=== PATIENT | female | born 1960 | race Caucasian/White ===

== ENCOUNTER 2017-11-25 00:46 | Outpatient (CLI) | payer BC, SELFPAY ==
--- NOTE | 2017-11-25 16:11 | DI.MAMMO_ITS ---
SYMPTOM/DIAGNOSIS: SCREENING MAMMOGRAMS: Mammograms were interpreted according to the usual protocol including computer analysis with CAD system, tomosynthesis and C view imaging. Comparison is made with exams from 2016 and 2017. The breasts are composed of scattered fibroglandular densities, breast density, Category B. No suspicious masses or suspicious microcalcifications are seen. There has been no significant change. IMPRESSION: Category 1B, negative mammogram. Routine screening is recommended. SA ASSESSMENT OF FINDINGS: Negative. Category 1. Patient will receive a letter notifying them of these results. BI-RADS category B. There are scattered areas of fibroglandular density.
== END 2017-11-25 01:06 ==
DX: Z12.31 Encounter for screening mammogram for malignant neoplasm of breast (principal)
CPT/HCPCS: 77063; 77067

== ENCOUNTER 2018-02-22 15:39 | Outpatient (REF) | payer BC, SELFPAY ==
--- NOTE | 2018-02-22 14:45 | PAPFT_PTH ---
PATIENT: Purvi Murray LOC: [facility] U#:[id number] AGE/SX: 57/F ROOM: RE02/22/[address]: Shirley Grant MD : 1960 BED: DIS: 02/22/2018 SPEC #: [id number] RECD: 02/22/18 18:36 STATUS: VIRIDIANA REQ #: [id number] WAYLON: 02/22/18 14:[address]: Shirley Berger DEPT: [facility] Cytology RECD BY: Rosemary Ruano ENTERED: 02/22/18 18:36 SP TYPE: PAPFT OTHR DR: Shasta Macedo APRN Tissues: 1 - CX/ENDOCX FOR PAP SMEARS Procedures: PAP THIN PREP/UVM Screening Comments: [id number] (CHLAMYDIA/GC) (UNSATISFACTORY FOR EVALUATION)
[2018-02-23 14:03] LABS: Chlamydia Result Negative; GC Result Negative; Specimen Description SEE COMMENTS
== END 2018-02-22 15:59 ==
LOC: LBN 15:39
PROVIDERS: Visit Provider Internal Medicine
DX: N89.8 Other specified noninflammatory disorders of vagina (principal); Z11.3 Encounter for screening for infections with a predominantly sexual mode of transmission; Z12.4 Encounter for screening for malignant neoplasm of cervix; Z11.51 Encounter for screening for human papillomavirus (HPV)
CPT/HCPCS: 87491; 87591; 88142; 87480; 87510; 87624; 87660

== ENCOUNTER 2018-03-17 11:27 | Emergency (ER) | payer BC, SELFPAY ==
[2018-03-17 11:32] VITALS: BP 109/70; PULSE 72; RESP 18; TEMP 36.3; O2SAT 97
--- NOTE | 2018-03-17 11:51 | W.ED.GENAD ---
Discharge Plan Disposition Patient Disposition: HOME Condition: Improving Discharge Details Chief Complaint: RespSymp Clinical Impression: Acute bronchitis with bronchospasm Primary Care Provider: Shasta Macedo ED Provider: Akhil Cedeño Home Meds and New Rx's Prescriptions: New amoxicillin-pot clavulanate 875-125 mg tablet 1 tab PO BID 10 Days Qty: 20 RF: 0 benzonatate [Tessalon Perles] 100 mg capsule 100 mg PO TID PRN (Reason: cough) Qty: 14 RF: 0 Continued escitalopram oxalate 5 MG tablet 5 mg PO DAILY Qty: 90 RF: 3 Discharge Instructions Instructions: Acute Bronchitis (ED) Additional Instructions: Follow-up with Shasta in clinic if not improving as we discussed. May use albuterol inhaler 2 puffs every 4 hours as needed. If you feel you require more frequent use, please return for reevaluation Take Augmentin as prescribed. May use Tessalon as prescribed as needed for cough. Small, frequent sips of fluids to maintain hydration. Tylenol if needed for aches, pains, fever Medical Decision Making 57-year-old female presents with worsening cough and congestion over 10-14 days time associated with subjective fever and chills. Her vital signs are normal exam reveals cough with end expiratory wheeze. She is not a smoker. She is well-appearing. Certainly has bronchitis with bronchospasm and may be developing a walking pneumonia. We will treat with Augmentin, she is given an albuterol inhaler with spacer and teaching, and may use Tessalon as needed for cough suppression. She will follow-up with primary care for recheck if not improved HPI General Mode of arrival: ambulatory. Date/Time Provider Initiated Documentation: 03/17/18 11:45. Limitations to Documentation: no limitations. Information obtained by: patient. History of Present Illness 57 year old F presents to the emergency department with the chief complaint of Worsening cough and congestion over days time., described as moderate, Quality is described as aching, and is localized to the chest. Patient started experiencing this week(s) and it has been constant. No relieving factors improve symptom(s), No exacerbating factors reported . Patient notes cough and fever/chills. Related Data Home Medications Medication Instructions Recorded Confirmed escitalopram oxalate 5 mg PO DAILY #90 tab-cap 06/22/17 02/24/18 amoxicillin-pot clavulanate 1 tab PO BID 10 Days #20 tab 03/17/18 benzonatate [Tessalon Perles] 100 mg PO TID PRN #14 cap 03/17/18 Previous Rx's Medication Instructions Recorded escitalopram oxalate 5 mg PO DAILY #90 tab-cap 06/22/17 amoxicillin-pot clavulanate 1 tab PO BID 10 Days #20 tab 03/17/18 benzonatate [Tessalon Perles] 100 mg PO TID PRN #14 cap 03/17/18 Allergies Allergy/AdvReac Type Severity Reaction Status Date / Time venlafaxine HCl AdvReac Severe Ears Verified 02/24/18 14:01 [From Effexor] ringing, feeling funny General Stated Complaint: RespSymp AUBREE: 4 Review of Systems Review of Systems 6 systems reviewed and otherwise neg PFSH Medical History Gastroesophageal reflux disease Polyp of colon (07/05/07) Surgical History Diagnostic Laproscopy Family History Mother Diabetes Essential hypertension Heart disease Hyperlipidemia Stroke Father Neoplasm Sister No problems noted. Sister No problems noted. Sister No problems noted. Sister No problems noted. Sister No problems noted. Daughter Depression Daughter No problems noted. Social History household members: other details: 2 current occupational status: employed current occupation: [employer] pets and animals: Yes pets and animals: dog(s) frequency: 3-4 times per week duration: 15-30 minutes/day Smoking/Tobacco Use Status: Never alcohol intake: current alcohol intake frequency: a few times a week substance use type: does not use special mandy needs: No History History 3 Para Hx # Term Pregnancies 2 Multiple births Hx # Pregnancies Ectopic pregnancies AB induced Hx Number of Living Children AB spontaneous Exam Narrative Exam Narrative: GEN: awake, alert, oriented 3. Pleasant, well groomed, interactive. HEAD: Normocephalic, atraumatic ENT: Mucous membranes moist, oropharynx unremarkable, External ear exam unremarkable, TMs clear bilaterally EYES: PERRL, EOMI NECK: Full ROM, no COLLEEN, no menigismus CHEST/RESP: Nontender, clear to auscultation bilateral, no rhonchi/rales. Discrete end expiratory wheeze with coughing CARDIOVASCULAR: RRR, no murmur, rub jenn. 2+ Rad pulse bilateral ABDOMEN: Soft, nontender, no mass. +Bowel sounds EXT: Full ROM, no edema, no rash Neuro: Grossly normal neurologic exam, conversant, interactive. Psych: Speech fluent, thoughts congruent, affect normal Course Vital Signs Temperature 36.3 C L 03/17/18 11:32 Pulse 72 03/17/18 11:32 Respiratory Rate 18 03/17/18 11:32 Blood Pressure 109/70 03/17/18 11:32 Pulse Oximetry 97 03/17/18 11:32 Temperature 36.3 C L 03/17/18 11:32 Temperature Source Temporal Artery Scan 03/17/18 11:32 Pulse 72 03/17/18 11:32 Respiratory Rate 18 03/17/18 11:32 Respiratory Effort Non-Labored 03/17/18 11:49 Blood Pressure 109/70 03/17/18 11:32 Pulse Oximetry 97 03/17/18 11:32 Oxygen Delivery Method Room Air 03/17/18 11:32 Oxygen Flow Rate 0 03/17/18 11:32
--- NOTE | 2018-03-17 11:54 | ED.GENADUL_ITS ---
Discharge Plan Disposition Patient Disposition: HOME Condition: Improving Discharge Details Chief Complaint: RespSymp Clinical Impression: Acute bronchitis with bronchospasm Primary Care Provider: Shasta Macedo ED Provider: Akhil Cedeño Home Meds and New Rx's Prescriptions: New amoxicillin-pot clavulanate 875-125 mg tablet 1 tab PO BID 10 Days Qty: 20 RF: 0 benzonatate [Tessalon Perles] 100 mg capsule 100 mg PO TID PRN (Reason: cough) Qty: 14 RF: 0 Continued escitalopram oxalate 5 MG tablet 5 mg PO DAILY Qty: 90 RF: 3 Discharge Instructions Instructions: Acute Bronchitis (ED) Additional Instructions: Follow-up with Shasta in clinic if not improving as we discussed. May use albuterol inhaler 2 puffs every 4 hours as needed. If you feel you require more frequent use, please return for reevaluation Take Augmentin as prescribed. May use Tessalon as prescribed as needed for cough. Small, frequent sips of fluids to maintain hydration. Tylenol if needed for aches, pains, fever Medical Decision Making 57-year-old female presents with worsening cough and congestion over 10-14 days time associated with subjective fever and chills. Her vital signs are normal exam reveals cough with end expiratory wheeze. She is not a smoker. She is well-appearing. Certainly has bronchitis with bronchospasm and may be developing a walking pneumonia. We will treat with Augmentin, she is given an albuterol inhaler with spacer and teaching, and may use Tessalon as needed for cough suppression. She will follow-up with primary care for recheck if not improved HPI General Mode of arrival: ambulatory . Date/Time Provider Initiated Documentation: 03/17/18 11:45 . Limitations to Documentation: no limitations . Information obtained by: patient . History of Present Illness 57 year old F presents to the emergency department with the chief complaint of Worsening cough and congestion over days time., described as moderate, Quality is described as aching, and is localized to the chest. Patient started experiencing this week(s) and it has been constant. No relieving factors improve symptom(s), No exacerbating factors reported . Patient notes cough and fever/chills. Related Data Home Medications Medication Instructions Recorded Confirmed escitalopram oxalate 5 mg PO DAILY #90 tab-cap 06/22/17 02/24/18 amoxicillin-pot clavulanate 1 tab PO BID 10 Days #20 tab 03/17/18 benzonatate [Tessalon Perles] 100 mg PO TID PRN #14 cap 03/17/18 Previous Rx's Medication Instructions Recorded escitalopram oxalate 5 mg PO DAILY #90 tab-cap 06/22/17 amoxicillin-pot clavulanate 1 tab PO BID 10 Days #20 tab 03/17/18 benzonatate [Tessalon Perles] 100 mg PO TID PRN #14 cap 03/17/18 Allergies Allergy/AdvReac Type Severity Reaction Status Date / Time venlafaxine HCl AdvReac Severe Ears Verified 02/24/18 14:01 [From Effexor] ringing, feeling funny General Stated Complaint: RespSymp AUBREE: 4 Review of Systems Review of Systems 6 systems reviewed and otherwise neg PFSH Medical History Gastroesophageal reflux disease Polyp of colon (07/05/07) Surgical History Diagnostic Laproscopy Family History Mother Diabetes Essential hypertension Heart disease Hyperlipidemia Stroke Father Neoplasm Sister No problems noted. Sister No problems noted. Sister No problems noted. Sister No problems noted. Sister No problems noted. Daughter Depression Daughter No problems noted. Social History household members: other details: 2 current occupational status: employed current occupation: [employer] pets and animals: Yes pets and animals: dog(s) frequency: 3-4 times per week duration: 15-30 minutes/day Smoking/Tobacco Use Status: Never alcohol intake: current alcohol intake frequency: a few times a week substance use type: does not use special mandy needs: No History History 3 Para Hx # Term Pregnancies 2 Multiple births Hx # Pregnancies Ectopic pregnancies AB induced Hx Number of Living Children AB spontaneous Exam Narrative Exam Narrative: GEN: awake, alert, oriented 3. Pleasant, well groomed, interactive. HEAD: Normocephalic, atraumatic ENT: Mucous membranes moist, oropharynx unremarkable, External ear exam unremarkable, TMs clear bilaterally EYES: PERRL, EOMI NECK: Full ROM, no COLLEEN, no menigismus CHEST/RESP: Nontender, clear to auscultation bilateral, no rhonchi/rales. Discrete end expiratory wheeze with coughing CARDIOVASCULAR: RRR, no murmur, rub jenn. 2+ Rad pulse bilateral ABDOMEN: Soft, nontender, no mass. +Bowel sounds EXT: Full ROM, no edema, no rash Neuro: Grossly normal neurologic exam, conversant, interactive. Psych: Speech fluent, thoughts congruent, affect normal Course Vital Signs Temperature 36.3 C L 03/17/18 11:32 Pulse 72 03/17/18 11:32 Respiratory Rate 18 03/17/18 11:32 Blood Pressure 109/70 03/17/18 11:32 Pulse Oximetry 97 03/17/18 11:32 Temperature 36.3 C L 03/17/18 11:32 Temperature Source Temporal Artery Scan 03/17/18 11:32 Pulse 72 03/17/18 11:32 Respiratory Rate 18 03/17/18 11:32 Respiratory Effort Non-Labored 03/17/18 11:49 Blood Pressure 109/70 03/17/18 11:32 Pulse Oximetry 97 03/17/18 11:32 Oxygen Delivery Method Room Air 03/17/18 11:32 Oxygen Flow Rate 0 03/17/18 11:32
[2018-03-17] MEDS: Amoxicillin 875/Clav. 125 TAB PO (11:56)
[2018-03-17] MEDS: Albuterol HFA 8 GM 60 PUFF INH IH (11:57)
== END 2018-03-17 12:07 | disposition home or self-care (01) ==
PROVIDERS: Emergency Provider Emergency Medicine
DX: J20.9 Acute bronchitis, unspecified (principal)
CPT/HCPCS: 99283

== ENCOUNTER 2018-06-07 09:47 | Emergency (ER) | payer BC, SELFPAY ==
[2018-06-07 10:11] VITALS: BP 95/66; PULSE 96; RESP 16; TEMP 36.6; O2SAT 99
--- NOTE | 2018-06-07 10:51 | ED.GENADUL_ITS ---
Discharge Plan Disposition Patient Disposition: HOME Condition: Good Discharge Details Chief Complaint: Sorethroat Clinical Impression: Acute streptococcal tonsillitis Primary Care Provider: Shasta Macedo ED Provider: Gabino Mason Home Meds and New Rx's Prescriptions: New clindamycin HCl 300 mg capsule 300 mg PO Q6H Qty: 40 RF: 0 methylprednisolone [Medrol (Erick)] 4 mg tablets,dose pack See Rx Instructions .ROUTE .COMPLEX Qty: 21 RF: 0 Discharge Instructions Instructions: Tonsillitis (ED) Additional Instructions: Please start the Medrol Dosepak tomorrow morning. Start the oral antibiotics this evening. Be sure to drink plenty of fluids to stay hydrated. Do salt water gargles to help with throat discomfort. Use Cepacol lozenges to help with throat pain. Use ibuprofen or acetaminophen for fever and pain. Contact ENT tomorrow ([phone]) for follow-up appointment in [place] on Thursday. Return to emergency department for inability to swallow, difficulty breathing, lethargy, neurological changes. Referrals: Rick Bui DO [OSTEOPATHIC DOCTOR] - Discharge Data Discharge Date/Time-TO BE ENTERED AT DEPARTURE: 06/07/18 13:40 Medical Decision Making Patient's rapid strep is positive from triage. She has erythema and exudate bilaterally. She has posterior oropharyngeal swelling on the left. Uvula is midline. Does not look like typical peritonsillar abscess. Consider retropharyngeal abscess. IV established and laboratory studies obtained. Fluids and Toradol given. Clindamycin IV given. CT scan of the neck obtained. Patient remains afebrile. White count is elevated. Labs otherwise okay. CT scan with left sided tonsillar hypertrophy and swelling. Possible very small fluid collection around 5 mm. This would be too small to attempt any type of drainage from. Case is discussed with ENT, Dr. Bui. Recommends a dose of IV Solu-Medrol here. Continue clindamycin and Medrol Dosepak at home. Patient to use Tylenol or Motrin for pain and fever. Salt water gargles and Cepacol lozenges as well for throat discomfort. Follow-up with ENT on Thursday. Return to ED if difficulty breathing, inability to swallow, high fevers, worsening pain. Lab Data Lab results reviewed: Yes I reviewed the patient's lab results. HPI General Mode of arrival: ambulatory . Date/Time Provider Initiated Documentation: 06/07/18 10:39 . Limitations to Documentation: no limitations . Information obtained by: patient and RN notes reviewed . HPI Narrative: Patient presents with 24 hours of worsening throat pain. Pain is worse on the left than the right. She has difficulty swallowing but is able to do so. She does not have difficulty breathing. She has had no fever that she is aware of. She has no other URI type symptoms. She has had no nausea vomiting. She has no headache or neurologic symptoms. Related Data Home Medications Medication Instructions Recorded Confirmed clindamycin HCl 300 mg PO Q6H #40 cap 06/07/18 methylprednisolone [Medrol (Erick)] See Rx Instructions .ROUTE 06/07/18 .COMPLEX #21 dose pk Previous Rx's Medication Instructions Recorded clindamycin HCl 300 mg PO Q6H #40 cap 06/07/18 methylprednisolone [Medrol (Erick)] See Rx Instructions .ROUTE 06/07/18 .COMPLEX #21 dose pk Allergies Allergy/AdvReac Type Severity Reaction Status Date / Time venlafaxine HCl AdvReac Severe Ears Verified 06/07/18 10:13 [From Effexor] ringing, feeling funny General Stated Complaint: Sorethroat AUBREE: 4 Review of Systems Constitutional Denies chills, Denies fever(s), Denies headache(s) and Denies weakness Eyes Denies eye discharge and Denies eye pain ENT Denies dizziness, Denies facial pain, Denies headache(s), Denies neck pain, Reports odynophagia, Reports sore throat, Denies throat swelling and Denies tongue swelling Cardiovascular Denies chest pain, Denies diaphoresis, Denies syncope and Denies dyspnea Respiratory Denies cough and Denies dyspnea Gastrointestinal Denies abdominal pain, Denies nausea, Reports odynophagia and Denies vomiting Musculoskeletal Denies back pain, Denies myalgias, Denies arthralgias, Denies neck pain and Denies numbness Integumentary/Breasts Denies rash Neurologic Denies dizziness, Denies syncope, Denies headache(s), Denies focal weakness, Denies numbness and Denies weakness Allergic/Immunologic Denies throat swelling and Denies tongue swelling [facility] Medical History Tubular adenoma (Chronic) Sebaceous papule (Resolved 07/02/16) Rosacea (Chronic 11/28/14) Right upper extremity numbness (Resolved 07/15/17) Pre-menstrual syndrome (Chronic) Colon polyp (Chronic) Insomnia (Chronic 12/13/15) Urinary, incontinence, stress female (Chronic 03/18/13) BMI 30.0-30.9,adult (Chronic 05/05/16) Anxiety (Chronic) Actinic keratoses (Chronic 07/02/16) Gastroesophageal reflux disease (Chronic) Surgical History Diagnostic Laproscopy (Inactive) Social History Smoking/Tobacco Use Status: Never Alcohol Intake: current Alcohol Intake frequency: a few times a week Drug use: Never Substance use type: does not use Household members: other Details: 2 Pets and animals: Yes Pets and animals: dog(s) Duration: 15-30 minutes/day Frequency: 3-4 times per week Special mandy needs: No Do you feel safe in your relationship?: Yes History History 3 Para Hx # Term Pregnancies 2 Multiple births Hx # Pregnancies Ectopic pregnancies AB induced Hx Number of Living Children AB spontaneous Exam Const General: cooperative, uncomfortable and no acute distress Orientation: alert and oriented x3 HENMT Head: normocephalic Ears: external ears normal and TM's normal bilaterally General nose exam: no nasal discharge Mouth: oral mucosae normal, tongue normal and malodorous breath Throat: uvula midline, abnormal tonsil on the left hypertrophy and bilaterally erythema and exudates, posterior oropharynx abnormal edema (left) and no uvular edema Eyes Conjunctivae: conjunctivae normal Neck Neck: trachea midline, supple and lymphadenopathy Resp Effort & Inspection: normal respiratory effort Auscultation: clear to auscultation bilaterally Cardio Rate: regular rate Rhythm: regular rhythm Heart Sounds: S1 normal and S2 normal Skin General skin exam: no erythema Rashes: no rashes Neuro General: alert, oriented x3, tone normal, no meningeal signs, no focal motor deficits and CN's II-XI intact bilaterally Course Vital Signs Temperature 97.9 F 06/07/18 10:11 Pulse 96 H 06/07/18 10:11 Respiratory Rate 16 06/07/18 10:11 Blood Pressure 95/66 L 06/07/18 10:11 Pulse Oximetry 99 06/07/18 10:11 Temperature 97.9 F 06/07/18 10:11 Temperature Source Skin 06/07/18 10:11 Pulse 96 H 06/07/18 10:11 Respiratory Rate 16 06/07/18 10:11 Respiratory Effort Non-Labored 06/07/18 10:11 Blood Pressure 95/66 L 06/07/18 10:11 Blood Pressure Position Sitting 06/07/18 10:11 Pulse Oximetry 99 06/07/18 10:11 Oxygen Delivery Method Room Air 06/07/18 10:11 Oxygen Flow Rate 0 06/07/18 10:11 Pain Level 8 06/07/18 10:11 Lab/Test Results Lab/Test Results: POC Strep Test-ONEAL(Rapid) Start: 06/07/18 10:14 Freq: .Rapid Strep Test Status: Active Protocol: Document 06/07/18 10:15 MMQ (Rec: 06/07/18 10:15 MMQ [id number]) Strep test-ONEAL(Rapid)-POC POC-Strep test-ONEAL (Rapid) Positive POC-Strep test-ONEAL (Rapid) Positive
--- NOTE | 2018-06-07 10:54 | DI.CT_ITS ---
SYMPTOMS/DIAGNOSIS: POSITIVE STREP, POSTERIOR ABSCESS SUSPECTED BY EXAM CT SCAN OF THE NECK: CT scan of the neck was performed following the uneventful administration of intravenous contrast material. There is asymmetric enlargement of the palatine tonsils. The left palatine tonsil is moderately enlarged. The right palatine tonsil is mildly enlarged. There does appear to be a small 5 mm fluid collection within the palatine tonsil deep which may represent a tiny abscess. The remainder of the oropharynx, nasopharynx, hypopharynx and larynx are unremarkable. The retropharyngeal space has a normal appearance. The parotid and submandibular glands are unremarkable. The thyroid gland is grossly unremarkable. The lung apices are free of infiltrates. Mild degenerative changes are seen in the spine particularly at C 5 - 6 and C 6 - 7. The visualized paranasal sinuses are clear. The mastoid air cells appear well pneumatized. IMPRESSION: 1. Asymmetric enlargement of the palatine tonsils left greater than right consistent with tonsillitis. Tiny possible fluid collection in the left palatine tonsil measuring approximately 5 mm in maximum diameter. This may represent a tiny abscess. The findings were discussed with Dr. Mason of the emergency department on the date of the examination.
[2018-06-07] MEDS: Normal Saline 1,000 ML 1000 ML IV (11:05)
[2018-06-07] MEDS: Ketorolac 30 MG/ML VIAL IVP (11:10)
[2018-06-07] MEDS: CLINDAMYCIN 900 MG/50 ML BAG 100 MG IVPB (11:15)
[2018-06-07 11:22] LABS: Abs Immature Grans 0.03 k/cumm (0.0-0.09); Absolute Eosinophil Count 0.04 k/cumm (0.0-0.7); Absolute Lymphocyte Count 1.24 k/cumm (1.2-3.4); Absolute Monocyte Count 0.94 k/cumm (0.11-0.7); Basophils % 0.1; Eosinophils % 0.3; HCT 41.2 % (36.0-46.0); HGB 13.9 g/dL (12.0-15.5); Immature Grans % 0.2; Lymphocytes % 9.2; Mean Corp. HGB Concentration 33.7 g/dL (32.0-36.0); Mean Corpuscular Hemoglobin 31.3 pg (27.0-33.0); Mean Corpuscular Volume 92.8 fL (80-95); Mean Platelet Volume 10.5 fL (8.0-11.0); Neutrophils % 83.2; Platelet Count 229 x1000/uL (130-400); RBC 4.44 m/cumm (4.00-5.20); RBC Distribution Width 13.8 % (11.7-14.6); White Blood Cell Count 13.45 k/cumm (4.4-10.8)
[2018-06-07 11:23] LABS: Absolute Basophil Count 0.01 k/cumm (0.0-0.2); Absolute Neutrophil Count 11.19 k/cumm (1.2-6.7)
[2018-06-07 11:25] LABS: Anion Gap 12.3 mmol/L (3-11); BUN 10 mg/dL (7-18); CO2 24.7 mmol/L (21.0-32.0); CREATININE 0.83 mg/dL (0.55-1.02); Calcium 9.1 mg/dL (8.5-10.1); Chloride 101 mmol/L (98-107); Glucose 101 mg/dL (70-100); Potassium 3.5 mmol/L (3.5-5.1); Sodium 138 mmol/L (136-145)
[2018-06-07] MEDS: Omnipaque 350 MG/ML 100 ML BTL IV (11:59)
[2018-06-07] MEDS: methylPREDNISolone SUCC 125 MG VIAL IVP (13:25)
[2018-06-07 13:55] VITALS: BP 99/66; PULSE 81; RESP 16; TEMP 36.6; O2SAT 100
--- NOTE | 2018-06-08 14:57 | NUR.NOTE ---
Nursing Note: Patient called stating that she needs a referral to ENT in [place], [place]. I faxed the 06/07/18 ED visit information to the office and called them to be sure that they knew it was there for the referral. Do Roth.
== END 2018-06-07 13:40 | disposition home or self-care (01) ==
PROVIDERS: Emergency Provider Emergency Medicine
DX: J02.0 Streptococcal pharyngitis (principal)
CPT/HCPCS: 36415; 70491; 80048; 87880; 96361; 96365; 96375; 99285; 85025; 99284; J1885; J2930; J3490

== ENCOUNTER 2018-08-04 02:17 | Outpatient (CLI) | payer BC, SELFPAY ==
[2018-08-04 08:19] LABS: Cholesterol 257 mg/dL (50-200); HDL Cholesterol 94 mg/dL (40-60); LDL CHOLESTEROL 142 mg/dL (<100); Triglyceride 66 mg/dL (30-150)
== END 2018-08-04 02:37 ==
DX: E78.5 Hyperlipidemia, unspecified (principal)
CPT/HCPCS: 36415; 80061; 83721

== ENCOUNTER 2018-12-20 13:42 | Outpatient (REF) | payer BC, SELFPAY ==
--- NOTE | 2018-12-20 09:00 | PAPFT_PTH ---
PATIENT: Purvi Murray LOC: [facility] U#:[id number] AGE/SX: 58/F ROOM: RE12/20/[address]: Shasta Macedo APRN : 1960 BED: DIS: 12/20/2018 SPEC #: [id number] RECD: 12/20/18 18:18 STATUS: VIRIDIANA REQ #: [id number] WAYLON: 12/20/18 09:[address]: Shasta Macedo DEPT: [facility] Cytology RECD BY: Rosemary Ruano Tissues: 1 - CX/ENDOCX FOR PAP SMEARS Procedures: PAP THIN PREP/UVM Screening HPV DNA PROBE Comments: [id number]
== END 2018-12-20 14:02 ==
LOC: LBN 13:42
DX: Z12.4 Encounter for screening for malignant neoplasm of cervix (principal); Z11.51 Encounter for screening for human papillomavirus (HPV)
CPT/HCPCS: 88142; 87624

== ENCOUNTER 2019-01-19 01:10 | Outpatient (CLI) | payer BC, SELFPAY ==
--- NOTE | 2019-01-19 07:18 | DI.MAMMO_ITS ---
EXAM: MG MAMMO SCREENING CLINICAL HISTORY: screening,Z12.39 TECHNIQUE: Bilateral full field digital CC and MLO mammographic images were obtained with 3D tomosyn thesis and utilizing computer aided detection (CAD). COMPARISON: Available for comparison. FINDINGS: Masses/Architectural Distortion: None seen. Microcalcifications: No suspicious pleomorphic-type are seen. Skin Thickening/Nipple Retraction: None. There is patient motion on both the right craniocaudad view and the right mediolateral oblique view. These view should be repeated. IMPRESSION: 1. No significant interval change with no specific features of malignancy noted. 2. Repeat right craniocaudad and mediolateral oblique views due to patient motion artifact. BI-RADS Cat 0 - Assessment Incomplete: Need additional imaging evaluation Breast Density - Category C - Heterogeneously dense The mammogram demonstrates the patient's breast tissue is dense. Dense breast tissue is very common a nd is not abnormal but dense breast tissue can make it harder to find cancer on a mammogram. Also, de nse breast tissue may increase their breast cancer risk. This [facility] was provided to the patient to raise their awareness. Use this report when you speak wi th the patient about their risks for breast cancer, which includes their family history. At that time , you may recommend for more screening tests (Ultrasound or MRI) as they might be useful based on the ir risk. A negative radiographic report should not delay biopsy if a dominant or clinically suspicious mass is present. Up to ten percent of cancers are not identified on mammography. A negative report may reinforce clinical impression. Adenosis and dense breasts may obscure an underlying neoplasm. False positive reports average 6 to 10%.
== END 2019-01-19 01:30 ==
DX: Z12.31 Encounter for screening mammogram for malignant neoplasm of breast (principal); R92.8 Other abnormal and inconclusive findings on diagnostic imaging of breast
CPT/HCPCS: 77063; 77067

== ENCOUNTER 2019-01-20 08:09 | Outpatient (CLI) | payer BC, SELFPAY ==
[2019-01-20 10:12] LABS: Abs Immature Grans 0.01 k/cumm (0.0-0.09); Absolute Basophil Count 0.04 k/cumm (0.0-0.2); Absolute Eosinophil Count 0.05 k/cumm (0.0-0.7); Absolute Monocyte Count 0.52 k/cumm (0.11-0.7); Absolute Neutrophil Count 3.15 k/cumm (1.2-6.7); Basophils % 0.7; Eosinophils % 0.9; HCT 43.8 % (36.0-46.0); HGB 14.4 g/dL (12.0-15.5); Immature Grans % 0.2; Lymphocytes % 31.1; Mean Corp. HGB Concentration 32.9 g/dL (32.0-36.0); Mean Corpuscular Hemoglobin 31.3 pg (27.0-33.0); Mean Corpuscular Volume 95.2 fL (80-95); Mean Platelet Volume 10.7 fL (8.0-11.0); Monocytes % 9.5; Neutrophils % 57.6; Platelet Count 282 x1000/uL (130-400); RBC Distribution Width 12.5 % (11.7-14.6); White Blood Cell Count 5.47 k/cumm (4.4-10.8)
[2019-01-20 10:31] LABS: ALT 13 U/L (14-59); AST 18 U/L (15-37); Albumin 4.1 g/dL (3.4-5.0); Alkaline Phosphatase 50 U/L (46-116); Anion Gap 9.1 mmol/L (3-11); BUN 14 mg/dL (7-18); Bilirubin, Total 0.6 mg/dL (0.2-1.0); CO2 29.9 mmol/L (21.0-32.0); CREATININE 0.78 mg/dL (0.55-1.02); Calcium 9.3 mg/dL (8.5-10.1); Calculated LDL 122 mg/dL; Chloride 102 mmol/L (98-107); Cholesterol 238 mg/dL (50-200); Glucose 92 mg/dL (70-100); HDL Cholesterol 106 mg/dL (40-60); Potassium 4.3 mmol/L (3.5-5.1); Sodium 141 mmol/L (136-145); Total Protein 7.3 g/dL (6.4-8.2); Triglyceride 51 mg/dL (30-150)
== END 2019-01-20 08:29 ==
DX: E78.5 Hyperlipidemia, unspecified (principal); F32.9 Major depressive disorder, single episode, unspecified; F41.9 Anxiety disorder, unspecified; G47.00 Insomnia, unspecified; I10 Essential (primary) hypertension; N94.3 Premenstrual tension syndrome; R10.11 Right upper quadrant pain; K21.9 Gastro-esophageal reflux disease without esophagitis; Z68.30 Body mass index [BMI] 30.0-30.9, adult
CPT/HCPCS: 36415; 80053; 80061; 85025

== ENCOUNTER 2019-09-29 01:21 | Outpatient (CLI) | payer BC, SELFPAY ==
[2019-09-29 09:38] LABS: ALT 63 U/L (14-59); AST 33 U/L (15-37); Alkaline Phosphatase 48 U/L (46-116); Anion Gap 10.3 mmol/L (3-11); BUN 28 mg/dL (7-18); Bilirubin, Total 0.6 mg/dL (0.2-1.0); CO2 26.7 mmol/L (21.0-32.0); Calcium 9.1 mg/dL (8.5-10.1); Calculated LDL 140 mg/dL (<100); Chloride 103 mmol/L (98-107); Cholesterol 258 mg/dL (<200); GGT 30 U/L (5-55); Glucose 109 mg/dL (74-106); HDL Cholesterol 108 mg/dL (40-60); Potassium 4.2 mmol/L (3.5-5.1); Sodium 140 mmol/L (136-145); Total Protein 6.9 g/dL (6.4-8.2); Triglyceride 51 mg/dL (<150)
[2019-09-29 09:51] LABS: Amylase 87 U/L (25-115); Lipase 431 U/L (73-393)
== END 2019-09-29 01:41 ==
DX: R10.811 Right upper quadrant abdominal tenderness (principal); E78.5 Hyperlipidemia, unspecified; F32.9 Major depressive disorder, single episode, unspecified; F41.9 Anxiety disorder, unspecified; G47.00 Insomnia, unspecified; I10 Essential (primary) hypertension; N94.3 Premenstrual tension syndrome; Z00.00 Encounter for general adult medical examination without abnormal findings
CPT/HCPCS: 36415; 80053; 80061; 83690; 82150; 82977

== ENCOUNTER 2019-10-10 01:37 | Outpatient (CLI) | payer BC, SELFPAY ==
--- NOTE | 2019-10-10 08:45 | DI.US_ITS ---
EXAM: US ABDOMEN CLINICAL HISTORY: Worsening RUQ tenderness, [id number] TECHNIQUE: Ultrasound abdomen performed using standard protocol. COMPARISON: US ABDOMEN ULTRASOUND from 04/10/2009 CT PELVIC/LOWER ABD WITHOUT CONT from 11/04/2016 FINDINGS: ABDOMINAL AORTA AND IVC: Visualized portions normal caliber. PANCREAS: Normal where visualized. LIVER: Diffuse increased echogenicity consistent with fatty infiltration. 13.7 cm in length. No hep atic mass sonographically. Hepatopedal flow in the Portal Vein. GALLBLADDER: No evidence of cholelithiasis. No evidence of wall thickening. No pericholecystic fluid identified. BILIARY SYSTEM: Common bile duct measures 2.8 mm. No intrahepatic biliary ductal dilation. JARA'S SIGN: Negative. KIDNEYS: Kidneys are symmetric in size. No evidence of renal calculi. No evidence of hydronephrosis. No renal mass or cyst identified. SPLEEN: Not enlarged. 8.3 cm in length. ASCITES: None seen. IMPRESSION: Fatty infiltration of the liver. DATA REPOSITORY:
== END 2019-10-10 01:57 ==
DX: R10.811 Right upper quadrant abdominal tenderness (principal)
CPT/HCPCS: 76700

== ENCOUNTER 2020-03-19 17:31 | Emergency (ER) | payer BC, SELFPAY ==
[2020-03-19] VITALS (20 sets, daily range): BP systolic 118–135; BP diastolic 75–87; PULSE 63–78; RESP 12–22; TEMP 36.3; O2SAT 97–100
--- NOTE | 2020-03-19 17:30 | RT.EKG_ITS ---
APPROVED REPORT Exam: Resting ECG Patient Location: E HR:81 bpm ECG Measurements Heart Rate 81 AXIS AR 150 P 74 QRSd 84 QRS 72 QT 360 T 62 QTc 418 Conclusion Sinus rhythm...normal P axis, V-rate 60- 99
--- NOTE | 2020-03-19 17:30 | DI.RAD_ITS ---
EXAM: XR CHEST 2V PA LATERAL CLINICAL HISTORY: chest tightness TECHNIQUE: 2D digital imaging was performed. COMPARISON: No exams were available for comparison FINDINGS: MEDIASTINUM: Normal. HEART: Normal. PULMONARY VASCULATURE: Normal. LUNGS: Clear. PLEURAL SPACE: No pleural effusion or pneumothorax. BONE:Mild degenerative changes in the spine. IMPRESSION: No acute pulmonary findings. DATA REPOSITORY: RADIATION DOSE DELIVERED:
--- NOTE | 2020-03-19 17:42 | W.ED.GENAD ---
Discharge Plan Disposition Patient Disposition: HOME Condition: Improving Discharge Details Clinical Impression: Vertigo Primary Care Provider: Shasta Macedo ED Provider: Selene Newsome Home Meds and New Rx's Prescriptions: New meclizine 25 mg tablet 25 mg PO BID PRN (Reason: dizziness or vertigo) Qty: 20 RF: 0 Continued citalopram 10 mg tablet 10 mg PO DAILY Qty: 30 RF: 11 Discharge Instructions Instructions: Vertigo (ED), Benign Paroxysmal Positional Vertigo (ED) Additional Instructions: Encourage water intake. You can preform the maneuvers completed here today. Attached is information on how to do this. Please follow up with physical therapy to help with vertigo symptoms. If you develop headache, fevers/chills, inability to stay hydrated or other new/worsening symptoms please seek care urgently once again. Please follow up with primary care in 1-2 weeks for reevaluation. Stand Alone Forms: Physical Therapy Referral Referrals: Shasta Macedo, [facility] [facility] [Primary Care Provider] - Medical Decision Making Patient is a pleasant 59-year-old female presenting today with chief complaint of vertigo. She reports have been intermittent over the past week. The become maximal when she is laying supine. States that symptoms seem to improve when she is more upright and active. She denies any headache. No visual change. Denies any nausea vomiting. Denies any difficulties with ambulation. Has not noted any focal weakness. The patient is been having some chest tightness with stated this is more when she is at rest than with activity. She is wondering if this may be associate with anxiety around her vertigo. She has had one episode like this historically in 2016. On exam, patient uncomfortable appearing. Minimal movements do cause her to become very dizzy. She is describing this as the room spinning. When this occurs, she holds very still and tightens her eyes. She has no notable neurological deficits. Normal cardiac exam. No lower extremity edema, no calf tenderness. Hints exam shows no nystagmus. Test considered to is normal. Head impulse testing does show dialyze consistent with peripheral lesion. Her exam is most consistent with benign vertigo. Her chest tightness is not found consistent with ACS. It is not when she is exerting herself but rather when she is lying down. This may be associate with anxiety. At this to have been going on for approximately 1 week now, plan to rule out ACS with troponin and ECG. Her physical exam and history are not consistent with pulmonary embolism. EKG was obtained and reviewed by Dr. Vines. Patient is in a normal sinus rhythm with a rate of 81, no acute ischemic changes noted. FINDINGS: Lungs: Clear lungs. Pleural space: No pneumothorax. No sizable pleural effusion. Heart/Mediastinum: No cardiomegaly. Bones/joints: Unremarkable. IMPRESSION: Clear lungs. Labs reviewed. Normal CBC. Creatinine slightly elevated 0.04. Patient is receiving hydration. Troponin is less than 0.05. Given the length of her symptoms, I do not feel that this needs to be repeated particularly as her symptoms are not overly concerning for ACS, I find this much less likel Steve maneuver was performed twice. Symptoms were maximal on the right side. She did have some horizontal nystagmus with this. She is now able to lay flat and tolerate this. The seem to be her largest complaint as she was having the sleeping secondary to symptoms being so maximal when laying supine. However, when she sits up quickly she does continue to have some vertigo although this is very short-lived. Patient was given dose of meclizine. She reports being 100% better. He would prefer to be discharged home at this time. We did discuss other maneuvers that may be completed to try and reduce seasonal residual vertigo. However, her and she are on a schedule tonight she would like to build to go home. We will refer her to therapy for outpatient vertigo regimen. Will prescribe meclizine as this did seem to work well for her. Strict return precautions were given. I encouraged that she follow-up with primary care in 1 week. All of her questions and concerns were addressed and she is agreement with plan. HPI General Mode of arrival: ambulatory. Date/Time Provider Initiated Documentation: 03/19/20 17:42. Limitations to Documentation: no limitations. Information obtained by: patient, RN notes reviewed and old records reviewed. History of Present Illness 59 year old F presents to the emergency department with the chief complaint of Dizziness, described as severe and similar to prior episodes (Similar episode in 2016), and is localized to the chest (Is also endorsing some mild tightness in her chest when at rest). Patient reports no radiation. Patient started experiencing this day(s) and it has been intermittent. Immobilization improves symptom(s), Movement worsens symptoms . Patient notes chest pain; denies cough, diaphoresis, fever/chills, headaches, loss of appetite, malaise, nausea/vomiting, rash, shortness of breath, syncope and weakness. Patient did receive the following treatments prior to arrival, none Related Data Home Medications Medication Instructions Recorded Confirmed citalopram 10 mg tablet 10 mg PO DAILY #30 tab 11/11/19 03/19/20 meclizine 25 mg PO BID PRN #20 tab 03/19/20 Previous Rx's Medication Instructions Recorded citalopram 10 mg tablet 10 mg PO DAILY #30 tab 11/11/19 meclizine 25 mg PO BID PRN #20 tab 03/19/20 Allergies Allergy/AdvReac Type Severity Reaction Status Date / Time venlafaxine HCl AdvReac Severe Ears Verified 03/19/20 17:41 [From Effexor] ringing, feeling funny General Stated Complaint: Chest Pain AUBREE: 2 Review of Systems Constitutional Constitutional: Reports as per HPI, Denies chills, Denies fever(s), Denies frequent falls, Denies headache(s), Denies snoring and Denies weakness Eyes Eyes: Reports as per HPI, Denies blurry vision, Denies change in vision and Reports photophobia ENT Ears, Nose, Mouth, and Throat: Reports vertigo, Denies headache(s) and Denies neck pain Cardiovascular Cardiovascular: Reports as per HPI, Reports chest pain, Reports chest pain at rest, Denies chest pain with activity, Denies lightheadedness, Denies radiating jaw, neck or arm pain, Denies dyspnea and Denies dyspnea on exertion Respiratory Respiratory: Reports as per HPI, Denies chest congestion, Denies cough, Denies dyspnea, Denies dyspnea on exertion, Denies snoring, Denies stridor and Denies wheezing Gastrointestinal Gastrointestinal: Reports as per HPI, Denies abdominal pain, Denies change in bowel habits, Denies nausea and Denies vomiting Musculoskeletal Musculoskeletal: Reports as per HPI, Denies back pain, Denies myalgias, Denies muscle cramps, Denies neck pain and Denies numbness Integumentary/Breasts Skin/Breast: Reports as per HPI and Denies rash Neurologic Neurologic: Reports as per HPI, Denies abnormal movements, Denies abnormal speech, Denies behavioral changes, Denies confusion, Reports vertigo, Denies frequent falls, Denies headache(s), Denies localized weakness, Denies numbness, Denies sensory deficit and Denies weakness Psychiatric Psychiatric: Denies behavioral changes and Denies confusion Allergic/Immunologic Allergic/Immunologic: Denies wheezing [facility] Medical History (Updated 03/19/20 @ 19:59 by BRITTANY Dorman) Actinic keratoses (07/02/16) Alcohol abuse Anxiety Colon polyp 04/05 Walko, tubular adenoma Depressive disorder Gastroesophageal reflux disease Genital lesion, female Herpes zoster Insomnia (12/13/15) Palpitations Pelvic organ prolapse quantification stage 3 cystocele Initially noted 02/24/2018. Second degree rectocele also present Pre-menstrual syndrome Right lower quadrant abdominal pain Right upper extremity numbness (07/15/17) Rosacea (11/28/14) RUQ abdominal tenderness Sebaceous papule (07/02/16) Tubular adenoma Urinary, incontinence, stress female (03/18/13) Vaginal atrophy 03/24/2019. Sample of vaginal Premarin with instructions for 0.5 g daily. Surgical History Diagnostic Laproscopy bilateral ovarian pain History of laparoscopy Family History Mother , age 77 Diabetes Essential hypertension Heart disease Hyperlipidemia Stroke Father , age 45 Lung cancer Sister No problems noted. Sister No problems noted. Sister Bone cancer Ovarian cancer Sister No problems noted. Sister No problems noted. Daughter Depression Daughter No problems noted. Maternal Grandfather No problems noted. Paternal Grandfather No problems noted. Maternal Grandmother No problems noted. Paternal Grandmother No problems noted. Social History Smoking/Tobacco Use Status: Never Smoking risk assessment performed?: Yes Alcohol Intake: current Alcohol Intake frequency: a few times a week Alcohol type: beer Counseling given: Yes Counseling provided: reduce to 2 or less/day Details: Avoid regular intake and no more than 2x per day Drug use: Never Substance use type: does not use Caregiver/Support person: No Household members: spouse and other Details: H-Olman. 2 daughters who do not live at home. Number of Children: 2 Communication Needs: None current occupation: [employer] Pets and animals: Yes Pets and animals: dog(s) Sexually active: Yes Do you think of yourself as: straight/heterosexual Current gender identity: female What is your relationship status?: How often do you talk on the phone with friends or family?: three or more times per week How often do you get together with friends or relatives?: once per week How often do you attend latter day or islam services?: decline to answer Do you belong to any clubs or organized social groups?: yes Panel score (0-1 are the most socially isolated patients): 3 What type of physical activity do you participate in: walking, other and running Duration: 15-30 minutes/day Frequency: 3-4 times per week Kyung/Orthodoxy: No preference Special kyung needs: No Seatbelt use: always Helmet use: No Drive intox or ride w/intox team cdl driver: No Do you feel safe in your relationship?: Yes Additional Social history: 2 daughters: Adriane 28yo. Employed by the [employer]. Cintia 26yo. with 2 children. Female Reproductive History Menstrual Duration of menses: 3-5 days (Patient continues to menstruate on a monthly basis) control method: none History History 3 Para Hx # Term Pregnancies 2 Multiple births Hx # Pregnancies Ectopic pregnancies AB induced Hx Number of Living Children AB spontaneous Exam Const General: cooperative, healthy appearing, uncomfortable, no acute distress, well developed and well groomed Nutritional Appearance: average body habitus and well nourished Orientation: alert, awake and oriented x3 HENMT Head: normal to inspection, no palpable skull fracture, normocephalic and atraumatic Ears: hearing grossly normal bilaterally, external ears normal and TM's normal bilaterally General nose exam: external nose normal Face and sinus: normal facial exam Mouth: oral mucosae normal and moist mucous membranes Throat: posterior oropharynx normal Eyes General: appearance normal, both eyes and all related structures Alignment and Position: alignment normal Periorbital: periorbital findings normal Eyelids: eyelids normal Sclera: sclerae normal Cornea: corneas normal Pupils: PERRL EOM: EOM intact bilaterally Neck Neck: normal visual inspection, full ROM, no lymphadenopathy and no meningeal signs Resp Effort & Inspection: normal respiratory effort, able to speak in complete sentences and no respiratory distress Auscultation: clear to auscultation bilaterally, no rales, no rhonchi and no wheezes Cardio Rate: regular rate Rhythm: regular rhythm Heart Sounds: S1 normal and S2 normal GI Inspection: normal to inspection and non-distended Palpation: soft, no hepatosplenomegaly, not firm, no guarding, not rigid and nontender Percussion: normal to percussion Auscultation: normal bowel sounds Back/Spine/Pelvis Cervical Spine: normal cervical lordosis and cervical ROM normal Skin General skin exam: no rashes or lesions noted Neuro General: patient alert, patient awake and patient oriented x3 Cranial Nerves: CN's II-XI intact bilaterally Cognition: normal cognition Speech: speech normal Gait: normal gait Motor: muscle tone normal throughout, strength 5/5 throughout, no pronator drift, no movement abnormalities noted and no fasciculations Sensory Exam: no sensory deficits noted Coordination: [id number] test normal Extrem General: normal to inspection, capillary refill normal, no pedal edema and no calf tenderness Psych Appearance: grossly normal and well kempt Mental Status: mental status grossly normal Speech and Movement: speech and movement normal Course Vital Signs Vital signs: Vital Signs Temperature 36.3 C L 03/19/20 17:34 Pulse 78 03/19/20 17:34 Respiratory Rate 16 03/19/20 17:34 Blood Pressure 127/76 03/19/20 17:34 Pulse Oximetry 99 03/19/20 17:34 Temperature 36.3 C L 03/19/20 17:34 Temperature Source Skin 03/19/20 17:34 Pulse 78 03/19/20 17:34 Respiratory Rate 16 03/19/20 17:34 Blood Pressure 127/76 03/19/20 17:34 Blood Pressure Position Sitting 03/19/20 17:34 Pulse Oximetry 99 03/19/20 17:34 Oxygen Delivery Method Room Air 03/19/20 17:34 Oxygen Flow Rate 0 03/19/20 17:34 Pain Level 8 03/19/20 17:34
[2020-03-19 17:53] LABS: Abs Immature Grans 0.01 10^3/uL (0.0-0.06); Absolute Basophil Count 0.05 10^3/uL (0.0-0.2); Absolute Eosinophil Count 0.17 10^3/uL (0.0-0.7); Absolute Lymphocyte Count 2.21 10^3/uL (1.2-3.4); Absolute Monocyte Count 0.63 10^3/uL (0.1-0.8); Absolute Neutrophil Count 3.73 10^3/uL (1.2-6.7); Basophils % 0.7; Eosinophils % 2.5; HCT 44.9 % (36.0-46.0); HGB 14.8 g/dL (11.2-15.7); Immature Grans % 0.1; Lymphocytes % 32.5; MCH 31.2 pg (27.0-33.0); MCV 94.5 fL (80-95); Monocytes % 9.3; Neutrophils % 54.9; Nucleated RBC 0 %; Platelet Count 298 10^3/uL (130-400); RBC 4.75 10^6/uL (3.93-5.22); RDW 11.9 % (11.7-14.6); RDW-SD 41.6 fL
[2020-03-19 18:04] LABS: INR 0.9 (0.9-1.1); PTT Activated 23.7 sec (21.0-27.5); Prothrombin Time 9.5 sec (9.3-11.0)
[2020-03-19 18:08] LABS: ALT 38 U/L (14-59); AST 26 U/L (15-37); Albumin 4.5 g/dL (3.4-5.0); Alkaline Phosphatase 66 U/L (46-116); Anion Gap 7.2 mmol/L (3-11); BUN 17 mg/dL (7-18); Bilirubin, Total 0.6 mg/dL (0.2-1.0); CO2 30.8 mmol/L (21.0-32.0); CREATININE 1.04 mg/dL (0.55-1.02); Calcium 9.7 mg/dL (8.5-10.1); Chloride 100 mmol/L (98-107); Estimated GFR 54.43 (mL/min/1.73m2); Glucose 93 mg/dL (74-106); Magnesium 2.1 mg/dL (1.8-2.4); Potassium 3.5 mmol/L (3.5-5.1); Sodium 138 mmol/L (136-145)
[2020-03-19 18:09] LABS: Troponin I < 0.05 ng/mL (<0.06)
--- NOTE | 2020-03-19 18:39 | DI.VRAD_ITS ---
PROCEDURE INFORMATION: Exam: XR Chest, 2 Views Exam date and time: 03/19/2020 5:44 PM Age: 59 years old Clinical indication: Chest tightness TECHNIQUE: Imaging protocol: XR of the chest Views: 2 views. COMPARISON: CR CHEST 2 VIEWS PA,LAT 01/31/2016 3:41 PM FINDINGS: Lungs: Clear lungs. Pleural space: No pneumothorax. No sizable pleural effusion. Heart/Mediastinum: No cardiomegaly. Bones/joints: Unremarkable. IMPRESSION: Clear lungs. Dictated and Authenticated by: Jama Perez MD. Ordering:ZEE Morton MD
[2020-03-19] MEDS: Normal Saline 1,000 ML 125 ML IV (18:58)
[2020-03-19] MEDS: Meclizine 25 MG TAB (19:30)
[2020-03-19] MEDS: Meclizine 25 MG TAB 50 MG PO (20:16)
== END 2020-03-19 20:20 | disposition home or self-care (01) ==
PROVIDERS: Emergency Provider Physician Assistant
DX: R42 Dizziness and giddiness (principal); H81.11 Benign paroxysmal vertigo, right ear; R07.89 Other chest pain
CPT/HCPCS: 36415; 80053; 93005; 95992; 96360; 99285; 71046; 83735; 84484; 85025; 85610; 85730; 93010

== ENCOUNTER 2020-05-04 01:42 | Outpatient (CLI) | payer BC, SELFPAY ==
[2020-05-04 14:25] LABS: AST 18 U/L (15-37); Lipase 154 U/L (73-393)
== END 2020-05-04 01:43 | disposition home or self-care (01) ==
LOC: LBO 01:42
DX: R10.811 Right upper quadrant abdominal tenderness (principal)
CPT/HCPCS: 36415; 83690; 84450

== ENCOUNTER 2021-03-06 01:36 | Outpatient (CLI) | payer BC, SELFPAY ==
[2021-03-06 09:32] LABS: ALT 48 U/L (14-59); AST 30 U/L (15-37); Albumin 4.3 g/dL (3.4-5.0); Alkaline Phosphatase 66 U/L (46-116); Anion Gap 8.3 mmol/L (3-11); BUN 18 mg/dL (7-18); Bilirubin, Total 0.7 mg/dL (0.2-1.0); CO2 29.7 mmol/L (21.0-32.0); CREATININE 0.8 mg/dL (0.55-1.02); Calcium 9.4 mg/dL (8.5-10.1); Calculated LDL 154 mg/dL (<100); Chloride 103 mmol/L (98-107); Cholesterol 285 mg/dL (<200); Glucose 101 mg/dL (74-106); HDL Cholesterol 121 mg/dL (40-60); Potassium 4.1 mmol/L (3.5-5.1); Sodium 141 mmol/L (136-145); Total Protein 7.5 g/dL (6.4-8.2); Triglyceride 53 mg/dL (<150)
== END 2021-03-06 01:37 | disposition home or self-care (01) ==
LOC: LBO 01:36
DX: Z00.00 Encounter for general adult medical examination without abnormal findings (principal); E78.5 Hyperlipidemia, unspecified
CPT/HCPCS: 36415; 80053; 80061

== ENCOUNTER 2021-04-04 01:51 | Outpatient (CLI) | payer BC, SELFPAY ==
--- NOTE | 2021-04-04 12:39 | DI.MAMMO_ITS ---
Exam(s) MAMMO SCREENING EXAM: MAMMO SCREENING CLINICAL HISTORY: screening,z12.39 TECHNIQUE: Mammograms were interpreted according to the usual protocol including computer analysis w [employer] CAD system, tomosynthesis and C-view imaging. COMPARISON: 2011 through 2018 FINDINGS: The breasts are composed of heterogeneously dense fibroglandular densities, Breast Density category C . No suspicious masses or suspicious microcalcifications are seen. No skin thickening or abnormal axillary lymph nodes are seen. There has been no significant change from prior exams. IMPRESSION: BI-RADS Category 1, Negative mammogram. Yearly screening mammography is recommended. Breast Density Category C, heterogeneously Dense. The mammogram demonstrates the patient's breast tissue is dense. Dense breast tissue is very common a nd is not abnormal but dense breast tissue can make it harder to find cancer on a mammogram. Also, de nse breast tissue may increase breast cancer risk. This information about the result of the mammogram report was provided to the patient to raise their awareness. Use this report when you speak with the patient about their risks for breast cancer, which includes their family history. At that time, you may recommend additional screening tests (Ultrasound or MRI) as they might be useful based on their r isk. A negative radiographic report should not delay biopsy if a dominant or clinically suspicious mass is present. Up to ten percent of cancers are not identified on mammography. A negative report may reinforce clinical impression. Adenosis and dense breasts may obscure an underlying neoplasm. False positive reports average 6 to 10%.
== END 2021-04-04 02:11 ==
DX: Z12.31 Encounter for screening mammogram for malignant neoplasm of breast (principal); R92.2 Inconclusive mammogram
CPT/HCPCS: 77063; 77067

== ENCOUNTER → 2021-07-22 16:28 | Outpatient (CLI) | payer BC, SELFPAY ==
--- NOTE | 2021-07-22 14:45 | DI.RAD_ITS ---
Exam(s) XR CHEST 2V PA LATERAL EXAM: XR CHEST 2V PA LATERAL CLINICAL HISTORY: abnormal lungs sounds upper left, COUGH, R05.9 TECHNIQUE: 2D digital imaging was performed. COMPARISON: CR,XR XR CHEST 2V PA LATERAL from 03/19/2020 FINDINGS: MEDIASTINUM: Normal. HEART: Normal. PULMONARY VASCULATURE: Normal. LUNGS: Clear. PLEURAL SPACE: No pleural effusion or pneumothorax. BONE:Unremarkable for age. IMPRESSION: No acute abnormality. DATA REPOSITORY: RADIATION DOSE DELIVERED:
== END ==
PROVIDERS: Visit Provider Nurse Practitioner Family
DX: R05.8 Other specified cough (principal)
CPT/HCPCS: 71046

== ENCOUNTER 2021-10-09 01:14 | Outpatient (CLI) | payer BC, SELFPAY ==
[2021-10-09 13:10] LABS: ALT 39 U/L (14-59); AST 30 U/L (15-37); Alkaline Phosphatase 57 U/L (46-116); Bilirubin, Direct 0.1 mg/dL (0.0-0.2); Bilirubin, Total 0.7 mg/dL (0.2-1.0); GGT 27 U/L (5-55); Total Protein 7.4 g/dL (6.4-8.2)
== END 2021-10-09 01:15 | disposition home or self-care (01) ==
LOC: LOS 01:14
DX: F10.10 Alcohol abuse, uncomplicated (principal); R10.811 Right upper quadrant abdominal tenderness
CPT/HCPCS: 36415; 80076; 82977

== ENCOUNTER → 2022-01-28 02:10 | Outpatient (CLI) | payer BC, SELFPAY ==
--- NOTE | 2022-01-28 10:14 | DI.RAD_ITS ---
Exam(s) XR SHOULDER LT COMPLETE 2+V EXAM: XR SHOULDER LT COMPLETE 2+V CLINICAL HISTORY: ongoing pain, lt shoulder,m25.512. TECHNIQUE: 2D digital imaging was performed of the left shoulder. Five images were obtained. AP, G rashey, Y-view and axillary views were obtained. COMPARISON: No exams were available for comparison FINDINGS: BONES: No acute fracture is present. No bony destructive lesion is seen. JOINTS: No dislocation present. Mild degenerative changes are seen at the acromioclavicular joint. SOFT TISSUE: Normal. IMPRESSION: Degenerative changes of the left AC joint. DATA REPOSITORY: RADIATION DOSE DELIVERED:
== END ==
PROVIDERS: PCP Nurse Practitioner Family; Visit Provider Family Medicine
DX: M19.012 Primary osteoarthritis, left shoulder (principal)
CPT/HCPCS: 73030

== ENCOUNTER 2022-03-03 10:00 | Day surgery (SDC) | payer BC, SELFPAY ==
[2022-03-03 10:15] VITALS: BP 112/79; PULSE 81; RESP 19; TEMP 36.8; O2SAT 97
--- NOTE | 2022-03-03 10:47 | W.ANESPRE ---
General Info Date of Service Date Performed: 03/03/22 Height: 5 ft 2 in Weight: 69.3 kg Body Mass Index (BMI): 27.9 Surgical Procedure: Operation Date: 03/03/22 11:35 Proposed Procedure Side Surgeon p Colonoscopy Keith Mora MD Meds Allergies and Home Medications Allergies Allergy/AdvReac Type Severity Reaction Status Date / Time venlafaxine HCl AdvReac Severe Ears Verified 03/03/22 10:13 [From Effexor] ringing, feeling funny Home Medication Medication Instructions Recorded citalopram 10 mg tablet 10 mg PO DAILY #90 tabs 12/09/21 bisacodyl 5 mg tablet,delayed 5 mg PO ONCE #4 tabs 02/20/22 release (Dulcolax (bisacodyl)) polyethylene glycol 3350 17 17 g PO ONCE #238 grams 02/20/22 gram/dose oral powder Current Visit Medications: Current Medications Generic Name Dose Route Start Last Admin Trade Name Freq PRN Reason Stop Dose Admin Ringer's Solution 1,000 mls @ 80 mls/hr 03/03/22 06:00 IV 03/03/22 23:59 INFUSION KIMBERLY IV Miscellaneous Supplies 1 each 03/03/22 06:00 Iv Access IV 03/03/22 23:59 DIRECTED KIMBERLY Sodium Chloride 0 ml 03/03/22 06:00 Normal Saline Flush 10 Ml Syr IV 03/03/22 23:59 PRN PRN Sodium Chloride 0 ml 03/03/22 06:00 Normal Saline 10 Ml Vial IJ 03/03/22 23:59 DIRECTED PRN Sterile Water 0 ml 03/03/22 06:00 Water,Injection,Sterile 10 Ml Vial IJ 03/03/22 23:59 DIRECTED PRN PFSH Active Problems Active Problems: Problem Status Onset Code Actinic keratoses 07/02/16 L57.0 Anxiety F41.9 Urinary, incontinence, stress female 03/18/13 N39.3 Insomnia 12/13/15 G47.00 Colon polyp K63.5 Pre-menstrual syndrome N94.3 Right upper extremity numbness 07/15/17 R20.2 Rosacea 11/28/14 L71.9 Sebaceous papule 07/02/16 L98.9 Tubular adenoma D36.9 Right lower quadrant abdominal pain R10.31 Palpitations R00.2 Depressive disorder F32.9 Alcohol abuse F10.10 Hyperlipidemia with target LDL less than 100 E78.5 Herpes zoster B02.9 Genital lesion, female N94.9 Pelvic organ prolapse quantification stage 3 cystocele N81.10 Vaginal atrophy N95.2 RUQ abdominal tenderness R10.811 BPV (benign positional vertigo) H81.10 Screening for colon cancer Z12.11 Medical History Medical History Gastroesophageal reflux disease Surgical History Surgical History Diagnostic Laproscopy bilateral ovarian pain History of colonoscopy Tobacco Smoking/Tobacco Use Status: Never Passive smoking exposure: Yes Second hand exposure: Yes Alcohol Alcohol Intake: current Alcohol intake frequency: a few times a week Alcohol type: beer Counseling provided: reduce to 2 or less/day Details: Avoid regular intake and no more than 2x per day Substance Use Substance use: Never Substance use type: does not use Prental History History 3 Para Hx # Term Pregnancies 2 Multiple births Hx # Pregnancies Ectopic pregnancies AB induced Hx Number of Living Children AB spontaneous Vital Signs and Lab Results Vital Signs Most Recent Vital Signs in EMR: Most Recent Vital Signs Temp Pulse Resp BP Pulse Ox 36.8 C 81 19 112/79 97 03/03/22 10:15 03/03/22 10:15 03/03/22 10:15 03/03/22 10:15 03/03/22 10:15 Lab Results Blood Type / Crossmatch: No Data to Display Complete Blood Count: No Data to Display Complete Metabolic Panel: No Data to Display Liver Function Panel: No Data to Display Coagulation Panel: No Data to Display Cardiac Panel: No Data to Display Arterial Blood Gas: No Data to Display Venous Blood Gas: No Data to Display Pancreas Panel: No Data to Display Thyroid Panel: No Data to Display Infectious Disease: No Data to Display Blood Cultures: No Data to Display Toxicology Panel: No Data to Display Imaging and Studies Imaging and Studies Study information below may be from another EMR and interpreted by another provider. Please see original notes in EMR for more complete details. EKG Summary: EKG PATIENT NAME: ANI GREGORY #: [id number] ORDERING PROVIDER: Mateo Vines M.D. PRIMARY CARE PROVIDER: MILA WOODS NP DATE/TIME OF SERVICE: 03/19/20 1738 : 2PERFORMING LOCATION: ER APPROVED REPORT Exam: Resting ECG Patient Location: E HR:81 bpm ECG Measurements Heart Rate 81 AXIS AL 150 P 74 QRSd 84 QRS 72 QT 360 T62 QTc 418 Conclusion Sinus rhythm...normal P axis, V-rate 60- 99 Anesthesia Assessment and Plan Anesthesia History Personal History: No History of Anesthesia Complications Family History: No Family History of Anesthesia Complications Exercise Tolerance Exercise Tolerance: Metabolic Equivalents>4 Pertinent Negatives Pertinent Negatives: No Symptoms of GERD, No Major Cardiovascular Symptoms or Complaints, No Major Pulmonary Symptoms or Complaints and No History of CVA/TIA Cardiac & Pulmonary Exam Cardiac Exam: Normal S1/S2 Heart Sounds Pulmonary Exam: Clear Bilateral Breath Sounds Implantable Cardiac Device Does patient have a Pacemaker or an ICD?: No Airway Exam Known Difficult Airway: No Mallampati Class: 1 Mouth Opening: Normal (> 3cm) Thyromental Distance: Greater than 3 cm Neck Range of Motion: Full ROM Neck Circumference: Normal Teeth Condition: Normal Dentition and Generalized Poor Dentition ASA Classification ASA Score: ASA 2 Emergency Case?: No NPO Status NPO Status: NPO Clears >2 hours, Solids >8 hours Anesthesia Plan Resuscitation Status: Full Code Anesthesia Technique: General Anesthesia Airway Planned: Natural Airway Monitors Used: Standard Monitors
[2022-03-03 10:49] VITALS: BMI 27.9
[2022-03-03] MEDS: Lactated Ringers 1,000 ML 80 ML IV (10:50)
--- NOTE | 2022-03-03 11:33 | BOWEL_PTH ---
PATIENT: Purvi Murray LOC: [facility] U#:[id number] AGE/SX: 61/F ROOM: RE03/03/[address]: Keith Mora : 1960 BED: DIS: 03/03/2022 SPEC #: [id number] RECD: 03/03/22 12:33 STATUS: VIRIDIANA RE #: [id number] WAYLON: 03/03/22 11:[address]: Keith Mora DEPT: Surgical Specimen RECD BY: Rosemary Ruano ENTERED: 03/03/22 12:34 SP TYPE: Bowel OTHR DR: Maximo Reynolds DNP Tissues: 1 - BIOPSY BOWEL Procedures: GROSS AND MICRO LEVEL 4 Comments: [id number]
--- NOTE | 2022-03-03 11:39 | W.PM.ENDDOP ---
Date of service: 03/03/22 Time of Service: 11:39 Endoscopy Report PROCEDURE DESCRIPTION: Procedures performed: 1. Colonoscopy with snare polypectomy x1 Preoperative diagnosis: Surveillance colonoscopy Postoperative diagnosis: Colon polyps Surgeon: Benoit Mora Anesthesia: Chris Indication for procedure: Patient is a 61-year-old woman with personal history of adenomatous polyps. Last colonoscopy 7-8 years ago. Findings: Normal t.i., a 5 - 7 mm sessile polyp was removed from the sigmoid colon with hot snare technique. Surveillance/follow-up recommendations: Repeat colonoscopy in 3-7 years pending path. Villous or sessile serrated histology warrants 3 years, adenomatous histology should be repeated in 5-7 years, follow-up proved to be hyperplastic by chance (not suspected) a 10-year repeat is probably acceptable. Complications: None Blood loss: Minimal Procedure in detail: Written consent was obtained from the patient who was in agreement with the risks, benefits and indications of the procedure. We went to the endoscopy suite and laid the patient in left lateral decubitus position. Anesthesia was administered which was tolerated well. A timeout was performed and when we are all in agreement we began the procedure. Digital rectal exam and visual examination was performed and within normal limits. A well?lubricated colonoscope was advanced without difficulty all the way to the cecum identified by the ileocecal valve, and triangular folds and appendiceal orifice. The terminal ileum was intubated and appeared normal. It was then slowly withdrawn. Retroflexion was performed in the rectum. The findings/interventions are noted above. The scope was then removed and the patient tolerated the procedure well and was then taken back to the PACU in hemodynamically stable condition.
[2022-03-03 11:42] VITALS: BP 97/76; PULSE 69; RESP 16; TEMP 36.2; O2SAT 100
[2022-03-03 12:08] VITALS: BP 108/67; PULSE 75; RESP 18; TEMP 36.6; O2SAT 99
--- NOTE | 2022-03-03 13:15 | W.ANESPOSTOP ---
Postoperative Evaluation Date, Time and Location Date Performed: 03/03/22 Time Performed: 13:16 Patient Location: Day Surgery Unit Vital Signs Most Recent Imported Vital Signs: Most Recent Vital Signs Temp Pulse Resp BP Pulse Ox 36.6 C 75 18 108/67 99 03/03/22 12:08 03/03/22 12:08 03/03/22 12:08 03/03/22 12:08 03/03/22 12:08 Pain Score Most Recent Pain Score: Most Recent Pain Score Pain Level 0 03/03/22 12:08 Assessment Mental Status: Awake (Alert & Oriented to Patient Baseline) Airway and Respiratory Function: Patent airway with normal (patient baseline) respiratory exam Cardiovascular Function: Hemodynamically Stable Hydration Status: Adequately Hydrated Nausea & Vomiting: No Nausea or Vomiting Pain: Pt. Denies Any Pain Peripheral Nerve Block: Patient did not receive a nerve block
== END 2022-03-03 12:29 | disposition home or self-care (01) ==
PROVIDERS: PCP Nurse Practitioner Family; Visit Provider Student in an Organized Health Care Education/Training Program
PROC: 0DJD8ZZ Inspection of Lower Intestinal Tract, Via Natural or Artificial Opening Endoscopic (ICD-10-PCS; CPT 45378; principal; 2022-03-03 11:30)
DX: Z12.11 Encounter for screening for malignant neoplasm of colon (principal); K63.5 Polyp of colon; K63.89 Other specified diseases of intestine
CPT/HCPCS: 45385; 88305

== ENCOUNTER 2022-03-27 02:52 | Outpatient (CLI) | payer BC, SELFPAY ==
[2022-03-27 13:36] LABS: Abs Immature Grans 0.02 10^3/uL (0.0-0.06); Absolute Basophil Count 0.04 10^3/uL (0.0-0.2); Absolute Eosinophil Count 0.07 10^3/uL (0.0-0.7); Absolute Lymphocyte Count 1.98 10^3/uL (1.2-3.4); Absolute Monocyte Count 0.49 10^3/uL (0.1-0.8); Absolute Neutrophil Count 4.12 10^3/uL (1.2-6.7); Basophils % 0.6; HCT 41.7 % (36.0-46.0); HGB 14.1 g/dL (11.2-15.7); Immature Grans % 0.3; Lymphocytes % 29.5; MCH 31.4 pg (27.0-33.0); MCHC 33.8 % (32.0-36.0); MCV 93 fL (80-95); Monocytes % 7.3; Neutrophils % 61.3; Platelet Count 309 10^3/uL (130-400); RBC 4.49 10^6/uL (3.93-5.22); RDW 11.9 % (11.7-14.6); RDW-SD 40.8 fL; WBC 6.72 10^3/uL (4.4-10.8)
[2022-03-27 13:49] LABS: Bilirubin Negative (Negative); Blood Negative (Negative); Clarity Clear (Clear); Glucose Negative (Negative); Ketones 15 mg/dL (Negative); Leukocyte Esterase Negative (Negative); Nitrite Negative (Negative); Specific Gravity 1.015 (1.005-1.025); Urobilinogen 0.2 EU/dL (Up TO 0.2)
[2022-03-27 14:18] LABS: ALT 31 U/L (14-59); AST 26 U/L (15-37); Albumin 4.5 g/dL (3.4-5.0); Alkaline Phosphatase 69 U/L (46-116); Anion Gap 10.3 mmol/L (3-11); BUN 20 mg/dL (7-18); Bilirubin, Total 0.9 mg/dL (0.2-1.0); CO2 27.7 mmol/L (21.0-32.0); CREATININE 0.9 mg/dL (0.55-1.02); Calcium 9.4 mg/dL (8.5-10.1); Chloride 99 mmol/L (98-107); Estimated GFR 73.19 (mL/min/1.73m2); Glucose 93 mg/dL (74-106); Potassium 3.5 mmol/L (3.5-5.1); Sodium 137 mmol/L (136-145); Total Protein 8.1 g/dL (6.4-8.2)
[2022-03-28 09:50] LABS: Hepatitis C Ab w Rflx HCV PCR Negative (Negative)
[2022-03-28 10:34] LABS: HIV-1/2 Ag & Ab Screen Negative (Negative)
== END 2022-03-27 02:53 | disposition home or self-care (01) ==
LOC: LBO 02:52
PROVIDERS: PCP Nurse Practitioner Family; Visit Provider Nurse Practitioner Family
DX: Z11.59 Encounter for screening for other viral diseases (principal); F10.10 Alcohol abuse, uncomplicated; Z11.4 Encounter for screening for human immunodeficiency virus [HIV]; N39.3 Stress incontinence (female) (male)
CPT/HCPCS: 36415; 80053; 86803; 87389; 81003; 85025

== ENCOUNTER 2022-04-25 00:17 | Outpatient (CLI) | payer BC, SELFPAY ==
--- NOTE | 2022-04-25 07:45 | DI.MAMMO_ITS ---
Exam(s) MAMMO SCREENING EXAM: MAMMO SCREENING CLINICAL HISTORY: screening,Z12.39. TECHNIQUE: Bilateral full field digital CC and MLO mammographic images were obtained with 3D tomosyn thesis and utilizing computer aided detection (CAD). COMPARISON: Prior mammograms were reviewed. FINDINGS: There has been no significant change in the appearance and distribution of the fibroglandular tissue. Benign-appearing microcalcifications are again noted in the right breast. There are no new obvious spiculated masses nor malignant appearing microcalcification groups. There is no significant architectural distortion nor skin thickening-retraction. IMPRESSION: Benign findings. No radiographic evidence of malignancy. BI-RADS Category 2 - Benign Findings Breast Density - Category C - Heterogeneously dense Breast density Category C or D implies that the patient has dense breast tissue. Dense breast tissue can make it harder to find cancer on a mammogram. Dense breast tissue is also associated with an incr eased risk of breast cancer. This information about the result of the mammogram report was provided to the patient to raise their awareness. Use this report when you speak with the patient about their risks for breast cancer, which includes their family history. At that time, you may recommend additional screening tests (Ultrasoun d or MRI) as these tests may add significant information. A negative radiographic report should not delay biopsy if a dominant or clinically suspicious mass is present. Up to ten percent of cancers are not identified on mammography. A negative report may reinforce clinical impression. Adenosis and dense breasts may obscure an underlying neoplasm. False positive reports average 6 to 10%. Patient will receive a letter notifying them of these results.
== END 2022-04-25 00:37 ==
LOC: DI 00:17
PROVIDERS: PCP Nurse Practitioner Family; Visit Provider Nurse Practitioner Family
DX: Z12.31 Encounter for screening mammogram for malignant neoplasm of breast; R92.8 Other abnormal and inconclusive findings on diagnostic imaging of breast
CPT/HCPCS: 77063; 77067

== ENCOUNTER 2022-08-25 03:39 | Outpatient (CLI) | payer BC, SELFPAY ==
[2022-08-25 12:28] LABS: Calculated LDL 129 mg/dL (<100); Cholesterol 241 mg/dL (<200); HDL Cholesterol 102 mg/dL (40-60); Triglyceride 52 mg/dL (<150)
== END 2022-08-25 03:40 | disposition home or self-care (01) ==
LOC: LOS 03:39
PROVIDERS: PCP Nurse Practitioner Family; Visit Provider Nurse Practitioner Family
DX: E78.5 Hyperlipidemia, unspecified (principal)
CPT/HCPCS: 36415; 80061

== ENCOUNTER → 2022-12-18 16:07 | Outpatient (CLI) | payer BC, SELFPAY ==
--- NOTE | 2022-12-18 15:34 | DI.RAD_ITS ---
Exam(s) XR FOOT LT COMPLETE EXAM: XR FOOT LT COMPLETE CLINICAL HISTORY: BRUNOERTODorian, M20.42-BUNION, M21.612. TECHNIQUE: 2D digital imaging was performed. COMPARISON: No exams were available for comparison FINDINGS: 3 views No evidence of fracture nor diastasis of the Lisfranc joint. Hallux valgus noted. Minimal degenerat jaleesa changes in the great toe metatarsophalangeal joint. Inferior calcaneal spur moderate size noted. Also enthesophyte on the posterior calcaneus Achilles insertion site. IMPRESSION: As above. DATA REPOSITORY: RADIATION DOSE DELIVERED:
--- NOTE | 2022-12-18 15:34 | DI.RAD_ITS ---
Exam(s) XR FOOT RT COMPLETE EXAM: XR FOOT RT COMPLETE CLINICAL HISTORY: PAIN IN RT FOOT-[id number]. TECHNIQUE: 2D digital imaging was performed. COMPARISON: CR XR FOOT LT COMPLETE from 12/18/2022 FINDINGS: 3 views No evidence of fracture nor diastasis of the Lisfranc joint. Bone density normal. No osseous lesion s. There is slight cortical subluxation of the great toe metatarsophalangeal joint as seen on the la teral view. Moderate size inferior calcaneal spur is noted. Calcification noted at the insertion site of Achilles tendon on the posterior aspect of the calcaneus . IMPRESSION: At the great toe metatarsophalangeal joint there is slight cortical subluxation. No dislocation. No erosions and no degenerative changes in this joint nor in the other MTP joints. DATA REPOSITORY: RADIATION DOSE DELIVERED:
== END ==
PROVIDERS: PCP Nurse Practitioner Family; Visit Provider Podiatrist
DX: M21.612 Bunion of left foot (principal); M79.671 Pain in right foot
CPT/HCPCS: 73630

== ENCOUNTER 2023-01-03 15:44 | Emergency (ER) | payer BC, SELFPAY ==
[2023-01-03 15:50] VITALS: BP 116/74; PULSE 76; RESP 14; TEMP 36.6; O2SAT 100
--- NOTE | 2023-01-03 16:16 | ED.GENADUL_ITS ---
Discharge Plan Disposition Patient Disposition: Home Condition: Stable Discharge Details Clinical Impression: Rash Primary Care Provider: Maximo Morgan ED Provider: Valentin Miller Home Meds and New Rx's Prescriptions: New hydrocortisone 1 % cream 1 applic topical TID PRNQty: 28.35 0RF Continued citalopram 10 mg tablet 10 mg PO DAILY Qty: 90 3RF Discharge Instructions Instructions: Acute Rash (ED) Additional Instructions: use the steroid cream for one week if not better in a week follow up with your primary care provider if you feel more ill, have severe worsening pain or fevers return to the emergency department Medical Decision Making 62yo female comes in with 2 days of redness under both eyes and itching ensation, denies any eye pain or vision changes. Doesn't know of any new makeups or detergents or soaps. STable on arrival speaking clearly. She has mild erythema under both orbits that is not warm to touch, no vesicles, no periorbital swelling, eyes appear normal without redness, eomi without pain. both areas are approximately 2x2cm. Suspect contact dermatitis, no findings to suggest infectious etiology. Will place on short course of topical steroids and advised to f/u with her pcp, return precautions given Differential Diagnosis Differential Diagnosis: contact dermatitis, cellulitis HPI General Mode of arrival: ambulatory . Date/Time Provider Initiated Documentation: 01/03/23 15:55 . Limitations to Documentation: no limitations . Information obtained by: patient . History of Present Illness 62 year old F presents to the emergency department with the chief complaint of rash, described as mild, Patient started experiencing this day(s) (2) and it has been constant. No relieving factors improve symptom(s), No exacerbating factors reported . Patient notes no other symptoms.. Patient did receive the following treatments prior to arrival, none Related Data Home Medications Medication Instructions Recorded Confirmed citalopram 10 mg tablet 10 mg PO DAILY #90 tabs 12/09/21 01/03/23 hydrocortisone 1 % topical cream 1 applic topical TID PRN #28.35 01/03/23 grams Previous Rx's Medication Instructions Recorded citalopram 10 mg tablet 10 mg PO DAILY #90 tabs 12/09/21 hydrocortisone 1 % topical cream 1 applic topical TID PRN #28.35 01/03/23 grams Allergies Allergy/AdvReac Type Severity Reaction Status Date / Time venlafaxine HCl AdvReac Severe Ears Verified 01/03/23 16:12 [From Effexor] ringing, feeling funny General Stated Complaint: RashLesion AUBREE: 4 Review of Systems All systems reviewed & are unremarkable except as noted in HPI and below Constitutional Constitutional: Denies chills, Denies fever(s) and Denies weakness Cardiovascular Cardiovascular: Denies chest pain and Denies dyspnea Respiratory Respiratory: Denies cough and Denies dyspnea Gastrointestinal Gastrointestinal: Denies abdominal pain, Denies nausea and Denies vomiting Musculoskeletal Musculoskeletal: Denies joint swelling Neurologic Neurologic: Denies weakness Endocrine Endocrine: Denies cold intolerance PFSH All Active Problems (Updated 01/03/23 @ 16:21 by Valentin Miller MD) Rash (Acute) Corns and callosities (Acute) Pain in right foot (Acute) Bunion, left foot (Acute) Hammertoe of left foot (Acute) Tendinitis of long head of biceps brachii of left shoulder (Acute) Arthritis of left glenohumeral joint (Acute) Left rotator cuff tear (Acute) Left shoulder pain (Acute) with radiation to elbow, worse when she is lying down Screening for colon cancer (Acute) BPV (benign positional vertigo) (Acute) Vaginal atrophy (Acute) 03/24/2019. Sample of vaginal Premarin with instructions for 0.5 g daily. Pelvic organ prolapse quantification stage 3 cystocele (Acute) Initially noted 02/24/2018. Second degree rectocele also present Genital lesion, female (Acute) Hyperlipidemia with target LDL less than 100 (Chronic) Started Red Rice Yeast 08/2018 Depressive disorder (Chronic) Tubular adenoma (Chronic) Rosacea (Chronic 11/28/14) Insomnia (Chronic 12/13/15) Urinary, incontinence, stress female (Chronic 03/18/13) Anxiety (Chronic) Actinic keratoses (Chronic 07/02/16) Medical History Colon polyp 04/05 Walko, tubular adenoma Gastroesophageal reflux disease Herpes zoster Palpitations Pre-menstrual syndrome Right upper extremity numbness (07/15/17) RUQ abdominal tenderness Surgical History Diagnostic Laproscopy bilateral ovarian pain History of colonoscopy Family History Mother , age 77 Diabetes Essential hypertension Heart disease Hyperlipidemia Stroke Father , age 45 Lung cancer Sister No problems noted. Sister No problems noted. Sister Bone cancer Ovarian cancer Sister No problems noted. Sister Renal malignant neoplasm Daughter Depression Daughter No problems noted. Maternal Grandfather No problems noted. Paternal Grandfather No problems noted. Maternal Grandmother No problems noted. Paternal Grandmother No problems noted. 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 [employer] Pets and animals: Yes Pets and animals: dog(s) Sexually active: Yes Do you think of yourself as: straight/heterosexual Current gender identity: female What is your relationship status?: How often do you talk on the phone with friends or family?: three or more times per week How often do you get together with friends or relatives?: twice per week How often do you attend religion or hinduism services?: decline to answer Do you belong to any clubs or organized social groups?: decline to answer Panel score (0-1 are the most socially isolated patients): 2 What type of physical activity do you participate in: walking and weight lifting Duration: 15-30 minutes/day Frequency: 1-2 times per week Kyung/Mosque: No preference Special kyung needs: No Seatbelt use: always Helmet use: Yes Helmet use: always Drive intox or ride w/intox sales warehouse driver: No Do you feel safe at home: Yes Do you feel safe in your relationship?: Yes Additional Social history: 2 daughters: Adriane 28yo. Employed by the [employer]. Cintia 26yo. with 2 children. Female Reproductive History Menstrual Duration of menses: 3-5 days (Patient continues to menstruate on a monthly ba sis) control method: none Menopause type: natural History History 3 Para Hx # Term Pregnancies 2 Multiple births Hx # Pregnancies Ectopic pregnancies AB induced Hx Number of Living Children AB spontaneous Exam Const General: no acute distress Orientation: alert HENMT Head: normal to inspection Ears: external ears normal General nose exam: external nose normal Mouth: moist mucous membranes Eyes General: appearance normal, both eyes and all related structures Neck Neck: normal visual inspection Resp Effort & Inspection: normal respiratory effort and able to speak in complete sentences Cardio Rate: regular rate Skin General skin exam: elasticity normal Neuro General: patient alert and patient oriented x3 Extrem General: normal to inspection Psych Mental Status: mental status grossly normal Course Vital Signs Vital signs: Vital Signs Temperature 36.6 C 01/03/23 15:50 Pulse 76 01/03/23 15:50 Respiratory Rate 14 01/03/23 15:50 Blood Pressure 116/74 01/03/23 15:50 Pulse Oximetry 100 01/03/23 15:50 Temperature 36.6 C 01/03/23 15:50 Temperature Source Skin 01/03/23 15:50 Pulse 76 01/03/23 15:50 Respiratory Rate 14 01/03/23 15:50 Respiratory Effort Normal 01/03/23 16:10 Blood Pressure 116/74 01/03/23 15:50 Blood Pressure Position Sitting 01/03/23 15:50 Pulse Oximetry 100 01/03/23 15:50 Oxygen Delivery Method Room Air 01/03/23 15:50 Oxygen Flow Rate 0 01/03/23 15:50 Pain Level 4 01/03/23 15:50 PAWSS Have you Been Recently Intoxicated or Drunk Within the Last 30 days?: No Have you Ever Experienced Previous Episodes of Alcohol Withdrawal?: No Have you ever Experienced Withdrawal Seizures?: No Have you ever Experienced Delirium Tremens(DT)s?: No Have you ever undergone Alcohol Rehabilitation Treatment (i.e, inpt ot outpatient treatment programs)?: No Have you ever Experienced Blackouts?: No Have you ever Combined Alcohol with other Downers within the last 90 days?: No Have you ever Combined Alcohol with any other Substance of Abuse during the last 90 days?: No Result: 0
== END 2023-01-03 16:37 | disposition home or self-care (01) ==
PROVIDERS: Emergency Provider Emergency Medicine; PCP Nurse Practitioner Family
DX: R21 Rash and other nonspecific skin eruption (principal)
CPT/HCPCS: 99283; 99284

== ENCOUNTER 2023-03-30 08:44 | Outpatient (REF) | payer BC, SELFPAY ==
--- NOTE | 2023-03-30 07:40 | PAPFT_PTH ---
PATIENT: Purvi Murray LOC: [facility] U#:[id number] AGE/SX: 62/F ROOM: RE03/30/[address]: Maximo Reynolds DNP : 1960 BED: DIS: 03/30/2023 SPEC #: [id number] RECD: 03/30/23 13:16 STATUS: VIRIDIANA REQ #: [id number] WAYLON: 03/30/23 07:[address]: Maximo Morgan DEPT: [facility] Cytology RECD BY: Rosemary Ruano Tissues: 1 - CX/ENDOCX FOR PAP SMEARS Procedures: PAP THIN PREP/UVM Screening HPV DNA PROBE Comments: [id number]
== END 2023-03-30 08:45 | disposition home or self-care (01) ==
LOC: LBN 08:44
PROVIDERS: PCP Nurse Practitioner Family; Visit Provider Nurse Practitioner Family
DX: Z12.4 Encounter for screening for malignant neoplasm of cervix (principal)
CPT/HCPCS: 88142; 87624

== ENCOUNTER 2023-04-16 03:56 | Outpatient (CLI) | payer BC, SELFPAY ==
[2023-04-16 07:41] LABS: HCT 39.3 % (36.0-46.0); MCH 30.8 pg (27.0-33.0); MCHC 33.1 % (32.0-36.0); MCV 93 fL (80-95); MPV 9.8 fL (8.0-11.0); Platelet Count 321 10^3/uL (130-400); RBC 4.22 10^6/uL (3.93-5.22); RDW 12.3 % (11.7-14.6); RDW-SD 42.5 fL; WBC 9.96 10^3/uL (4.4-10.8)
[2023-04-16 07:55] LABS: ALT 33 U/L (14-59); AST 23 U/L (15-37); Albumin 3.7 g/dL (3.4-5.0); Alkaline Phosphatase 64 U/L (46-116); Anion Gap 8.2 mmol/L (3-11); BUN 16 mg/dL (7-18); Bilirubin, Total 0.5 mg/dL (0.2-1.0); CO2 30.8 mmol/L (21.0-32.0); CREATININE 0.7 mg/dL (0.55-1.02); Calcium 8.8 mg/dL (8.5-10.1); Chloride 106 mmol/L (98-107); Estimated GFR 98.34 (mL/min/1.73m2); Glucose 98 mg/dL (74-106); Potassium 4.2 mmol/L (3.5-5.1); Sodium 145 mmol/L (136-145); Total Protein 7.2 g/dL (6.4-8.2)
== END 2023-04-16 03:57 | disposition home or self-care (01) ==
LOC: LBO 03:56
PROVIDERS: PCP Nurse Practitioner Family; Visit Provider Nurse Practitioner Family
DX: E78.5 Hyperlipidemia, unspecified (principal); F32.9 Major depressive disorder, single episode, unspecified
CPT/HCPCS: 36415; 80053; 85027

== ENCOUNTER → 2023-10-14 01:18 | Outpatient (CLI) | payer BC, SELFPAY ==
--- NOTE | 2023-10-14 07:00 | DI.MAMMO_ITS ---
Exam(s) MAMMO SCREENING EXAM: MAMMO SCREENING CLINICAL HISTORY: screening,z12.39 TECHNIQUE: Bilateral full field digital CC and MLO mammographic images were obtained with 3D tomosyn thesis and utilizing computer aided detection (CAD). COMPARISON: Available for comparison. FINDINGS: Masses/Architectural Distortion: None seen. Microcalcifications: No suspicious pleomorphic-type are seen. Skin Thickening/Nipple Retraction: None. IMPRESSION: 1. No significant interval change with no specific features of malignancy noted. 2. Unless there is more urgent need, screening mammography is recommended, as per [employer] guidelines. BI-RADS Category 1 - Negative Breast Density - Category B - Scattered areas of fibroglandular density Breast density category C or D implies that the patient has dense breast tissue. Dense breast tissue is very common and is not abnormal but dense breast tissue can make it harder to find cancer on a ma mmogram. Also, dense breast tissue may increase their breast cancer risk. This information about the result of the mammogram report was provided to the patient to raise their awareness. Use this report when you speak with the patient about their risks for breast cancer, which includes their family hist ory. At that time, you may recommend for more screening tests (Ultrasound or MRI) as they might be us eful based on their risk. A negative radiographic report should not delay biopsy if a dominant or clinically suspicious mass is present. Up to ten percent of cancers are not identified on mammography. A negative report may reinforce clinical impression. Adenosis and dense breasts may obscure an underlying neoplasm. False positive reports average 6 to 10%. Patient will receive a letter notifying them of these results.
== END ==
PROVIDERS: PCP Nurse Practitioner Family; Visit Provider Nurse Practitioner Family
DX: Z12.39 Encounter for other screening for malignant neoplasm of breast (principal); Z12.31 Encounter for screening mammogram for malignant neoplasm of breast
CPT/HCPCS: 77063; 77067

== ENCOUNTER 2024-01-08 08:33 | Outpatient (CLI) | payer BC, SELFPAY ==
[2024-01-08 13:19] LABS: Calculated LDL 168 mg/dL (<100); Cholesterol 283 mg/dL (<200); HDL Cholesterol 105 mg/dL (40-60); Triglyceride 53 mg/dL (<150)
== END 2024-01-08 08:34 | disposition home or self-care (01) ==
LOC: LOS 08:33
PROVIDERS: PCP Nurse Practitioner Family; Referring Provider Nurse Practitioner Family; Visit Provider Nurse Practitioner Family
DX: E78.5 Hyperlipidemia, unspecified (principal); Z09 Encounter for follow-up examination after completed treatment for conditions other than malignant neoplasm
CPT/HCPCS: 36415; 80061

== ENCOUNTER 2024-10-18 02:56 | Outpatient (CLI) | payer BC, SELFPAY ==
--- NOTE | 2024-10-18 07:45 | DI.MAMMO_ITS ---
Exam(s) MAMMO SCREENING EXAM: MAMMO SCREENING CLINICAL HISTORY: screening, Z12.39. TECHNIQUE: Bilateral full field digital CC and MLO mammographic images were obtained with 3D tomosynthesis and utilizing computer aided detection (CAD). COMPARISON: Prior mammograms were reviewed. FINDINGS: There has been no significant change in the appearance and distribution of the fibroglandular tissue. Asymmetric density in the right breast appears to be superimposed vessels on 3D tomosynthesis imaging There are no new spiculated masses nor new malignant appearing microcalcification groups. There is no significant architectural distortion nor skin thickening-retraction. IMPRESSION: No radiographic evidence of malignancy. BI-RADS Category 1 - Negative Breast Density - Category B - There are scattered areas of fibroglandular density. Breast density Category C or D implies that the patient has dense breast tissue. Dense breast tissue can make it harder to find cancer on a mammogram. Dense breast tissue is also associated with an increased risk of breast cancer. This information about the result of the mammogram report was provided to the patient to raise their awareness. Use this report when you speak with the patient about their risks for breast cancer, which includes their family history. At that time, you may recommend additional screening tests (Ultrasound or MRI) as these tests may add significant information. A negative radiographic report should not delay biopsy if a dominant or clinically suspicious mass is present. Up to ten percent of cancers are not identified on mammography. A negative report may reinforce clinical impression. Adenosis and dense breasts may obscure an underlying neoplasm. False positive reports average 6 to 10%. Patient will receive a letter notifying them of these results.
== END 2024-10-18 03:16 ==
LOC: DI 02:56
PROVIDERS: PCP Nurse Practitioner Family; Visit Provider Nurse Practitioner Family
DX: Z12.31 Encounter for screening mammogram for malignant neoplasm of breast (principal); R92.323 Mammographic fibroglandular density, bilateral breasts
CPT/HCPCS: 77063; 77067